=== PATIENT | male | born 1960 | race African-American/Black ===

== ENCOUNTER 2018-09-24 21:31 | Emergency (ER) | payer MEDICARE, OTHER ==
[~2018-09-24] VITALS: Ht 193 cm; Wt 126.4 kg
[~2018-09-24 21:31] MED LIST: ASPI-556 PO; ATOR40TA28 PO; DOCU-119 PO; GABA-531 PO; IPRAHFA IH; LOSA25TA2 PO; METO25TA3 PO; OMEP20 PO; Ranolazine PO; TAMS0.4C32 PO; TICA90TA PO
[2018-09-24] MEDS ORDERED: MIRT15 PO (21:52)
[2018-09-24] MEDS ORDERED: NITR0.4T52 SL (21:52)
[2018-09-24] MEDS ORDERED: DULO20CA30 PO (21:52)
[2018-09-24] MEDS ORDERED: TRAM50TA4 PO (21:52)
[2018-09-24] MEDS ORDERED: ROSU20TA23 PO (21:52)
[2018-09-24] MEDS ORDERED: NIFE90TA38 PO (21:52)
[2018-09-24] MEDS ORDERED: METO-558 PO (21:52)
[2018-09-24] MEDS ORDERED: ISOS60TA4 PO (21:52)
[2018-09-24] MEDS ORDERED: LORA10TA7 PO (21:52)
[2018-09-24] MEDS ORDERED: ALIR75PE SQ (21:52)
[2018-09-24] MEDS ORDERED: MONT10TA21 PO (21:52)
[2018-09-24] MEDS ORDERED: RANI150T7 PO (21:52)
[2018-09-24] MEDS ORDERED: VENL-193 PO (21:52)
[2018-09-24] MEDS ORDERED: DiphenhydrAMINE HCL 25 MG CAPSULE PO ONE (22:45)
[2018-09-24 22:58] VITALS: BP 99/45
== END 2018-09-24 23:06 | disposition home or self-care (01) ==
LOC: EMS 21:33
DX: T78.49XA Other allergy, initial encounter (principal); I10 Essential (primary) hypertension; E78.00 Pure hypercholesterolemia, unspecified; I25.10 Atherosclerotic heart disease of native coronary artery without angina pectoris; Z88.5 Allergy status to narcotic agent; Z88.6 Allergy status to analgesic agent; Z79.82 Long term (current) use of aspirin; Z79.899 Other long term (current) drug therapy; X58.XXXA Exposure to other specified factors, initial encounter

== ENCOUNTER 2018-09-27 23:00 | Inpatient (IN) | payer MEDICARE, OTHER ==
[~2018-09-27] VITALS: Ht 193 cm; Wt 129.4 kg
[~2018-09-27 23:00] MED LIST changes: +ALIR75PE SQ; -ATOR40TA28 PO; -DOCU-119 PO; +DULO20CA30 PO; -GABA-531 PO; -IPRAHFA IH; +ISOS60TA4 PO; +LORA10TA7 PO; +METO-558 PO; -METO25TA3 PO; +MIRT15 PO; +MONT10TA21 PO; +NIFE90TA38 PO; +NITR0.4T52 SL; +RANI150T7 PO; +ROSU20TA23 PO; +TRAM50TA4 PO; +VENL-193 PO
[2018-09-27 23:31] LABS: BASOPHILS % (AUTO) 0.9 % (0.0-2.0); EOSINOPHILS % (AUTO) 1.3 % (1.0-6.0); HEMATOCRIT 38.6 % (41-53); HEMOGLOBIN 12.7 g/dL (13.5-17.5); LYMPHOCYTES # (AUTO) 2.2 K/uL (1.0-4.8); MEAN CORPUSCULAR HEMOGLOBIN 31.2 pg (26.0-34.0); MEAN CORPUSCULAR HGB CONC 32.9 G/dL (31.0-37.0); MEAN CORPUSCULAR VOLUME 95 fL (80-100); MONOCYTES # (AUTO) 0.4 K/uL (0.1-1.0); MONOCYTES % (AUTO) 9.1 % (2.0-9.0); NEUTROPHILS # (AUTO) 1.8 K/uL (1.8-7.7); NEUTROPHILS % (AUTO) 39.7 % (40.0-70.0); PLATELET COUNT (AUTO) 222 K/uL (150-450); RED BLOOD CELL COUNT(AUTO) 4.07 MIL/uL (4.50-5.90); RED CELL DISTRIBUTION WIDTH 15.4 % (11.5-14.5)
[2018-09-27] MEDS ORDERED: MORPHINE SULFATE 10 MG/ML SYRINGE IVP ONE (23:45)
[2018-09-27] MEDS ORDERED: ONDANSETRON HCL 4 MG/2 ML VIAL IVP ONE (23:45)
[2018-09-27] MEDS ORDERED: MORPHINE SULFATE 2 MG/ML SYRINGE IVP ONE (23:45)
[2018-09-27 23:54] LABS: B-TYPE NATRIURETIC PEPTIDE 23 pg/mL (0-100)
[2018-09-28] MEDS ORDERED: ONDANSETRON HCL 4 MG/2 ML VIAL IVP PRN
[2018-09-28] MEDS ORDERED: 0.9% SODIUM CHLORIDE 10 ML SYRINGE IVP PRN
[2018-09-28 00:06] LABS: ALANINE AMINOTRANSFERASE 20 U/L (12-78); ALBUMIN 3.7 g/dL (3.4-5.0); ALKALINE PHOSPHATASE 79 U/L (46-116); ANION GAP 11 mmol/L (8-16); ASPARTATE AMINOTRANSFERASE 15 U/L (15-37); BILIRUBIN,TOTAL 0.2 mg/dL (0.1-1.0); CALCIUM, TOTAL 9.2 mg/dL (8.8-10.5); CARBON DIOXIDE 24 mmol/L (22-29); CHLORIDE 105 mmol/L (98-107); CREATININE 1.24 mg/dL (0.60-1.30); GLOMERULAR FILTR. RATE CALC > 60 mL/min (>60); GLUCOSE,RANDOM 111 mg/dL (70-110); LIPASE 181 U/L (73-393); POTASSIUM 3.9 mmol/L (3.5-5.1); SODIUM SERUM 140 mmol/L (136-145); TOTAL PROTEIN, SERUM 7.5 g/dL (6.4-8.2); UREA NITROGEN, BLOOD 15 mg/dL (7-18)
[2018-09-28] MEDS ORDERED: NITROGLYCERIN 2% (1 GM=INCH) PACKET TP ONE (00:30)
[2018-09-28] MEDS ORDERED: MORPHINE SULFATE 2 MG/ML SYRINGE IVP ONE (00:30)
[2018-09-28 01:55] VITALS: BP 138/79
[2018-09-28] MEDS ORDERED: NITROGLYCERIN 0.4 MG SUBLINGUAL TABLET #25 SL PRN (02:45)
[2018-09-28] MEDS ORDERED: TraMADol HCL 50 MG TABLET PO PRN (02:45)
[2018-09-28] MEDS ORDERED: MAGNESIUM HYDROXIDE SUSPENSION 30 ML UDCUP PO PRN (03:00)
[2018-09-28] MEDS ORDERED: IPRATROPIUM BROMIDE 0.5 MG/2.5 ML NEB SOLUTION NEB PRN (03:00)
[2018-09-28] MEDS ORDERED: BISACODYL 10 MG RECTAL RECTAL SUPPOSITORY PR PRN (03:00)
[2018-09-28] MEDS ORDERED: ALBUTEROL SULFATE 2.5 MG/0.5 ML NEB SOLUTION NEB PRN (03:00)
[2018-09-28 05:55] VITALS: BP 113/61
[2018-09-28 06:05] LABS: BASOPHILS % (AUTO) 0.6 % (0.0-2.0); EOSINOPHILS % (AUTO) 1.8 % (1.0-6.0); HEMATOCRIT 36.5 % (41-53); LYMPHOCYTES # (AUTO) 2.2 K/uL (1.0-4.8); MEAN CORPUSCULAR HEMOGLOBIN 31.4 pg (26.0-34.0); MEAN CORPUSCULAR VOLUME 95 fL (80-100); MONOCYTES # (AUTO) 0.5 K/uL (0.1-1.0); MONOCYTES % (AUTO) 11.2 % (2.0-9.0); NEUTROPHILS # (AUTO) 1.4 K/uL (1.8-7.7); NEUTROPHILS % (AUTO) 34.4 % (40.0-70.0); PLATELET COUNT (AUTO) 212 K/uL (150-450); RED BLOOD CELL COUNT(AUTO) 3.83 MIL/uL (4.50-5.90); RED CELL DISTRIBUTION WIDTH 15.2 % (11.5-14.5)
[2018-09-28 06:13] LABS: ALANINE AMINOTRANSFERASE 24 U/L (12-78); ALBUMIN 3.5 g/dL (3.4-5.0); ALKALINE PHOSPHATASE 72 U/L (46-116); ANION GAP 4 mmol/L (8-16); ASPARTATE AMINOTRANSFERASE 15 U/L (15-37); BILIRUBIN,TOTAL 0.2 mg/dL (0.1-1.0); CALCIUM, TOTAL 8.9 mg/dL (8.8-10.5); CARBON DIOXIDE 29 mmol/L (22-29); CHLORIDE 106 mmol/L (98-107); CHOL/HDL RATIO 1.6 (4.2-7.3); CHOLESTEROL 58 mg/dL (131-200); CREATININE 1.22 mg/dL (0.60-1.30); GLOMERULAR FILTR. RATE CALC > 60 mL/min (>60); GLUCOSE,RANDOM 100 mg/dL (70-110); HDL CHOLESTEROL 37 mg/dL (40-60); LDL CHOL (CALC.) 11 mg/dL (0-130); POTASSIUM 4.4 mmol/L (3.5-5.1); SODIUM SERUM 139 mmol/L (136-145); TOTAL PROTEIN, SERUM 7.1 g/dL (6.4-8.2); TRIGLYCERIDES 48 mg/dL (15-150); UREA NITROGEN, BLOOD 13 mg/dL (7-18)
[2018-09-28 07:24] VITALS: BP 116/69
[2018-09-28] MEDS: HEPARIN SODIUM,PORCINE 5,000 UNITS/ML VIAL SQ SCH ×2 (08:43→20:56)
[2018-09-28] MEDS: ROSUVASTATIN CALCIUM 20 MG TABLET PO SCH (08:46)
[2018-09-28] MEDS: TAMSULOSIN HCL 0.4 MG CAPSULE PO SCH (08:46)
[2018-09-28] MEDS: OMEPRAZOLE 20 MG CAPSULE PO SCH (08:47)
[2018-09-28] MEDS: MONTELUKAST SODIUM 10 MG TABLET PO SCH (08:47)
[2018-09-28] MEDS: DULoxetine HCL 20 MG CAPSULE PO SCH (08:47)
[2018-09-28] MEDS: RANOLAZINE 500 MG ER TABLET PO SCH ×2 (08:48→20:56)
[2018-09-28] MEDS: DOCUSATE SODIUM 100 MG CAPSULE PO SCH ×2 (08:48→20:56)
[2018-09-28] MEDS: TICAGRELOR 90 MG TABLET PO SCH ×2 (08:48→20:56)
[2018-09-28] MEDS: VENLAFAXINE HCL 37.5 MG TABLET PO SCH (08:48)
[2018-09-28] MEDS: ASPIRIN 81 MG EC TABLET PO SCH (08:48)
[2018-09-28] MEDS: ISOSORBIDE MONONITRATE 60 MG ER TABLET PO SCH (08:48)
[2018-09-28] MEDS: NIFEdipine 90 MG ER TABLET PO SCH (08:48)
[2018-09-28] MEDS: LORATADINE 10 MG TABLET PO SCH (08:49)
[2018-09-28] MEDS: LOSARTAN POTASSIUM 25 MG TABLET PO SCH (08:49)
[2018-09-28] MEDS ORDERED: METOPROLOL SUCCINATE 50 MG ER TABLET PO SCH (09:00)
[2018-09-28 10:49] VITALS: BP 115/76
[2018-09-28] MEDS ORDERED: RANO500T3 PO (11:57)
[2018-09-28] MEDS: ONDANSETRON HCL 4 MG/2 ML VIAL IVP PRN ×2 (12:21→18:13)
[2018-09-28] MEDS: MORPHINE SULFATE 2 MG/ML SYRINGE IVP PRN ×2 (12:21→18:13)
[2018-09-28] MEDS ORDERED: METOPROLOL TARTRATE 50 MG TABLET PO SCH ×2 (15:00→21:00)
[2018-09-28 15:59] VITALS: BP 103/60
[2018-09-28 19:25] VITALS: BP 97/50
[2018-09-28] MEDS: MIRTAZAPINE 15 MG TABLET PO SCH (20:56)
[2018-09-28] MEDS: METOPROLOL TARTRATE 50 MG TABLET PO SCH (21:00)
[2018-09-29] VITALS (7 sets, daily range): BP systolic 106–128; BP diastolic 61–85
[2018-09-29] MEDS: LORATADINE 10 MG TABLET PO SCH (08:56)
[2018-09-29] MEDS: ROSUVASTATIN CALCIUM 20 MG TABLET PO SCH (08:56)
[2018-09-29] MEDS: RANOLAZINE 500 MG ER TABLET PO SCH ×2 (08:56→20:21)
[2018-09-29] MEDS: TAMSULOSIN HCL 0.4 MG CAPSULE PO SCH (08:56)
[2018-09-29] MEDS: DOCUSATE SODIUM 100 MG CAPSULE PO SCH ×2 (08:56→20:22)
[2018-09-29] MEDS: VENLAFAXINE HCL 37.5 MG TABLET PO SCH (08:56)
[2018-09-29] MEDS: OMEPRAZOLE 20 MG CAPSULE PO SCH (08:56)
[2018-09-29] MEDS: TICAGRELOR 90 MG TABLET PO SCH ×2 (08:57→20:21)
[2018-09-29] MEDS: METOPROLOL TARTRATE 50 MG TABLET PO SCH ×2 (08:57→20:21)
[2018-09-29] MEDS: MONTELUKAST SODIUM 10 MG TABLET PO SCH (08:57)
[2018-09-29] MEDS: ASPIRIN 81 MG EC TABLET PO SCH (08:57)
[2018-09-29] MEDS: HEPARIN SODIUM,PORCINE 5,000 UNITS/ML VIAL SQ SCH ×2 (08:58→20:21)
[2018-09-29] MEDS: DULoxetine HCL 20 MG CAPSULE PO SCH (08:59)
[2018-09-29] MEDS: NIFEdipine 90 MG ER TABLET PO SCH (12:18)
[2018-09-29] MEDS: ISOSORBIDE MONONITRATE 60 MG ER TABLET PO SCH (12:18)
[2018-09-29] MEDS: MORPHINE SULFATE 2 MG/ML SYRINGE IVP PRN ×2 (12:19→20:25)
[2018-09-29] MEDS: LOSARTAN POTASSIUM 25 MG TABLET PO SCH (12:21)
[2018-09-29] MEDS: ONDANSETRON HCL 4 MG/2 ML VIAL IVP PRN ×2 (12:26→21:17)
[2018-09-29] MEDS: MIRTAZAPINE 15 MG TABLET PO SCH (20:22)
[2018-09-30 04:00] VITALS: BP 112/64
[2018-09-30] MEDS: ONDANSETRON HCL 4 MG/2 ML VIAL IVP PRN ×3 (05:17→17:45)
[2018-09-30] MEDS: MORPHINE SULFATE 2 MG/ML SYRINGE IVP PRN ×3 (05:18→17:45)
[2018-09-30 08:01] VITALS: BP 114/63
[2018-09-30] MEDS: LORATADINE 10 MG TABLET PO SCH (08:43)
[2018-09-30] MEDS: DOCUSATE SODIUM 100 MG CAPSULE PO SCH ×2 (08:43→20:16)
[2018-09-30] MEDS: TICAGRELOR 90 MG TABLET PO SCH ×2 (08:43→20:16)
[2018-09-30] MEDS: DULoxetine HCL 20 MG CAPSULE PO SCH (08:44)
[2018-09-30] MEDS: ASPIRIN 81 MG EC TABLET PO SCH (08:44)
[2018-09-30] MEDS: ROSUVASTATIN CALCIUM 20 MG TABLET PO SCH (08:44)
[2018-09-30] MEDS: TAMSULOSIN HCL 0.4 MG CAPSULE PO SCH (08:45)
[2018-09-30] MEDS: VENLAFAXINE HCL 37.5 MG TABLET PO SCH (08:45)
[2018-09-30] MEDS: MONTELUKAST SODIUM 10 MG TABLET PO SCH (08:46)
[2018-09-30] MEDS: RANOLAZINE 500 MG ER TABLET PO SCH ×2 (08:46→20:15)
[2018-09-30] MEDS: OMEPRAZOLE 20 MG CAPSULE PO SCH (08:46)
[2018-09-30] MEDS: HEPARIN SODIUM,PORCINE 5,000 UNITS/ML VIAL SQ SCH ×2 (08:47→20:16)
[2018-09-30] MEDS: LOSARTAN POTASSIUM 25 MG TABLET PO SCH (09:00)
[2018-09-30] MEDS: NIFEdipine 90 MG ER TABLET PO SCH (09:00)
[2018-09-30] MEDS: METOPROLOL TARTRATE 50 MG TABLET PO SCH ×2 (09:00→20:16)
[2018-09-30] MEDS: ISOSORBIDE MONONITRATE 60 MG ER TABLET PO SCH (09:00)
[2018-09-30 11:33] VITALS: BP 114/63
[2018-09-30 16:04] VITALS: BP 120/60
[2018-09-30 20:07] VITALS: BP 128/78
[2018-09-30] MEDS: MIRTAZAPINE 15 MG TABLET PO SCH (20:16)
[2018-10-01 00:11] VITALS: BP 100/45
[2018-10-01 00:58] VITALS: BP 131/78
[2018-10-01 04:12] VITALS: BP 113/71
[2018-10-01] MEDS: MORPHINE SULFATE 2 MG/ML SYRINGE IVP PRN ×2 (05:33→11:43)
[2018-10-01] MEDS: ONDANSETRON HCL 4 MG/2 ML VIAL IVP PRN ×2 (05:33→11:43)
[2018-10-01 05:41] LABS: ANION GAP 1 mmol/L (8-16); CALCIUM, TOTAL 9.5 mg/dL (8.8-10.5); CARBON DIOXIDE 31 mmol/L (22-29); CHLORIDE 106 mmol/L (98-107); CREATININE 1.38 mg/dL (0.60-1.30); GLOMERULAR FILTR. RATE CALC > 60 mL/min (>60); GLUCOSE,RANDOM 122 mg/dL (70-110); POTASSIUM 4.4 mmol/L (3.5-5.1); SODIUM SERUM 138 mmol/L (136-145); UREA NITROGEN, BLOOD 11 mg/dL (7-18)
[2018-10-01 07:54] VITALS: BP 121/88
[2018-10-01] MEDS: LOSARTAN POTASSIUM 25 MG TABLET PO SCH (08:32)
[2018-10-01] MEDS: ISOSORBIDE MONONITRATE 60 MG ER TABLET PO SCH (09:00)
[2018-10-01] MEDS: NIFEdipine 90 MG ER TABLET PO SCH (09:00)
[2018-10-01] MEDS: HEPARIN SODIUM,PORCINE 5,000 UNITS/ML VIAL SQ SCH (09:00)
[2018-10-01] MEDS: METOPROLOL TARTRATE 50 MG TABLET PO SCH (09:50)
[2018-10-01] MEDS ORDERED: METOPROLOL TARTRATE 5 MG/5 ML VIAL ONE (10:27)
[2018-10-01] MEDS ORDERED: NITROGLYCERIN 400 MCG/SUBLINGUAL SPRAY 4.9 GM BOTTLE SL ONE (10:27)
[2018-10-01] MEDS: TICAGRELOR 90 MG TABLET PO SCH (11:25)
[2018-10-01] MEDS: LORATADINE 10 MG TABLET PO SCH (11:26)
[2018-10-01] MEDS: ROSUVASTATIN CALCIUM 20 MG TABLET PO SCH (11:26)
[2018-10-01] MEDS: DOCUSATE SODIUM 100 MG CAPSULE PO SCH (11:26)
[2018-10-01] MEDS: DULoxetine HCL 20 MG CAPSULE PO SCH (11:27)
[2018-10-01] MEDS: TAMSULOSIN HCL 0.4 MG CAPSULE PO SCH (11:28)
[2018-10-01] MEDS: ASPIRIN 81 MG EC TABLET PO SCH (11:28)
[2018-10-01] MEDS: OMEPRAZOLE 20 MG CAPSULE PO SCH (11:28)
[2018-10-01] MEDS: VENLAFAXINE HCL 37.5 MG TABLET PO SCH (11:28)
[2018-10-01] MEDS: RANOLAZINE 500 MG ER TABLET PO SCH (11:29)
[2018-10-01] MEDS: MONTELUKAST SODIUM 10 MG TABLET PO SCH (11:29)
[2018-10-01 11:40] VITALS: BP 123/96
[2018-10-01] MEDS ORDERED: TraMADol HCL 50 MG TABLET PO PRN (14:45)
== END 2018-10-01 15:34 | disposition home or self-care (01) | DRG 303 ==
LOC: EMS 23:04 → 5S 23:52
PROVIDERS: ADMIT Internal Medicine; ATTEND Internal Medicine
PROC: 5A09357 Assistance with Respiratory Ventilation, Less than 24 Consecutive Hours, Continuous Positive Airway Pressure (ICD-10-PCS; principal; 2018-09-28)
PROC: 5A09357 Assistance with Respiratory Ventilation, Less than 24 Consecutive Hours, Continuous Positive Airway Pressure (ICD-10-PCS; 2018-09-29)
PROC: 5A09357 Assistance with Respiratory Ventilation, Less than 24 Consecutive Hours, Continuous Positive Airway Pressure (ICD-10-PCS; 2018-09-30)
PROC: 5A09357 Assistance with Respiratory Ventilation, Less than 24 Consecutive Hours, Continuous Positive Airway Pressure (ICD-10-PCS; 2018-10-01)
DX: I25.110 Atherosclerotic heart disease of native coronary artery with unstable angina pectoris (principal); I10 Essential (primary) hypertension; E78.5 Hyperlipidemia, unspecified; J45.909 Unspecified asthma, uncomplicated; F32.9 Major depressive disorder, single episode, unspecified; K21.9 Gastro-esophageal reflux disease without esophagitis; N40.0 Benign prostatic hyperplasia without lower urinary tract symptoms; E66.9 Obesity, unspecified; E78.00 Pure hypercholesterolemia, unspecified; M19.90 Unspecified osteoarthritis, unspecified site; G47.33 Obstructive sleep apnea (adult) (pediatric); G89.29 Other chronic pain; Z95.5 Presence of coronary angioplasty implant and graft; Z95.0 Presence of cardiac pacemaker; Z88.8 Allergy status to other drugs, medicaments and biological substances; Z79.899 Other long term (current) drug therapy; Z68.34 Body mass index [BMI] 34.0-34.9, adult
CPT/HCPCS: 93005; 93306; 94660; G0378; G0480; J1644; J2270; J2405; J3490

== ENCOUNTER 2018-10-09 19:24 | Emergency (ER) | payer MEDICARE, OTHER ==
[~2018-10-09] VITALS: Ht 193 cm; Wt 125.0 kg
[~2018-10-09 19:24] MED LIST changes: -ALIR75PE SQ; -ISOS60TA4 PO; -LORA10TA7 PO; -METO-558 PO; -MIRT15 PO; -MONT10TA21 PO; -NIFE90TA38 PO; -RANI150T7 PO; +RANO500T3 PO; -Ranolazine PO; -TRAM50TA4 PO; -VENL-193 PO
[2018-10-09 20:12] LABS: BASOPHILS % (AUTO) 0.4 % (0.0-2.0); EOSINOPHILS % (AUTO) 0.5 % (1.0-6.0); HEMATOCRIT 39.3 % (41-53); LYMPHOCYTES % (AUTO) 40.1 % (22.0-44.0); MEAN CORPUSCULAR HEMOGLOBIN 31.3 pg (26.0-34.0); MEAN CORPUSCULAR HGB CONC 33.1 G/dL (31.0-37.0); MEAN CORPUSCULAR VOLUME 95 fL (80-100); MONOCYTES # (AUTO) 0.5 K/uL (0.1-1.0); MONOCYTES % (AUTO) 8.9 % (2.0-9.0); NEUTROPHILS # (AUTO) 2.6 K/uL (1.8-7.7); NEUTROPHILS % (AUTO) 50.1 % (40.0-70.0); PLATELET COUNT (AUTO) 205 K/uL (150-450); RED BLOOD CELL COUNT(AUTO) 4.15 MIL/uL (4.50-5.90); RED CELL DISTRIBUTION WIDTH 15.4 % (11.5-14.5)
[2018-10-09 20:21] LABS: ANION GAP 4 mmol/L (8-16); CALCIUM, TOTAL 9.7 mg/dL (8.8-10.5); CARBON DIOXIDE 32 mmol/L (22-29); CHLORIDE 106 mmol/L (98-107); CREATININE 1.31 mg/dL (0.60-1.30); GLOMERULAR FILTR. RATE CALC > 60 mL/min (>60); GLUCOSE,RANDOM 90 mg/dL (70-110); POTASSIUM 4.4 mmol/L (3.5-5.1); SODIUM SERUM 142 mmol/L (136-145); UREA NITROGEN, BLOOD 15 mg/dL (7-18)
[2018-10-09 20:25] LABS: PROTHROMBIN TIME 10.5 SEC (9.4-11.6)
[2018-10-09 20:29] LABS: B-TYPE NATRIURETIC PEPTIDE 34 pg/mL (0-100)
[2018-10-09 20:47] LABS: ALANINE AMINOTRANSFERASE 33 U/L (12-78); ALBUMIN 3.7 g/dL (3.4-5.0); ALKALINE PHOSPHATASE 75 U/L (46-116); ASPARTATE AMINOTRANSFERASE 21 U/L (15-37); BILIRUBIN,TOTAL 0.3 mg/dL (0.1-1.0); CREATINE KINASE, TOTAL ONLY 469 U/L (39-308); TOTAL PROTEIN, SERUM 7.7 g/dL (6.4-8.2)
[2018-10-09] MEDS ORDERED: MORPHINE SULFATE 2 MG/ML SYRINGE IVP ONE (22:45)
[2018-10-09] MEDS ORDERED: ONDANSETRON HCL 4 MG/2 ML VIAL IVP ONE (22:45)
[2018-10-09 23:19] LABS: APPEARANCE,URINE CLEAR (CLEAR); GLUCOSE, URINE (UA) NEGATIVE (NEGATIVE); KETONES,URINE TRACE mg/dL (NEGATIVE); LEUKOCYTE ESTERASE ,URINE SMALL (NEGATIVE); NITRATE,URINE NEGATIVE (NEGATIVE); OCCULT BLOOD,URINE NEGATIVE (NEGATIVE); PROTEIN,URINE TRACE (NEGATIVE)
[2018-10-09 23:25] LABS: BILIRUBIN,URINE PRELIM. POSITIVE (NEGATIVE)
[2018-10-09 23:30] LABS: AMPHET/METH SCREEN,URINE NEGATIVE (NEGATIVE); BARBITURATE SCREEN, URINE NEGATIVE (NEGATIVE); BENZODIAZEPINES SCREEN,URINE NEGATIVE (NEGATIVE); CANNABINOID SCREEN,URINE NEGATIVE (NEGATIVE); COCAINE SCREEN,URINE NEGATIVE (NEGATIVE); METHADONE SCREEN, URINE NEGATIVE (NEGATIVE)
[2018-10-09 23:31] LABS: OPIATE SCREEN,URINE NEGATIVE (NEGATIVE); PHENCYCLIDINE SCREEN,URINE NEGATIVE (NEGATIVE)
[2018-10-09 23:35] LABS: BACTERIA,URINE None Seen /HPF (None Seen); RBC,URINE 0-2 /HPF (0-2); SQUAMOUS EPITHELIAL CELL,UR Moderate /LPF (None Seen)
[2018-10-10] MEDS ORDERED: MORPHINE SULFATE 2 MG/ML SYRINGE IVP ONE (00:45)
[2018-10-10 01:00] VITALS: BP 124/68
== END 2018-10-10 01:10 | disposition home or self-care (01) ==
LOC: EMS 19:27
DX: R07.9 Chest pain, unspecified (principal); I25.10 Atherosclerotic heart disease of native coronary artery without angina pectoris; I11.9 Hypertensive heart disease without heart failure; E78.00 Pure hypercholesterolemia, unspecified; Z88.5 Allergy status to narcotic agent; Z88.6 Allergy status to analgesic agent; Z79.82 Long term (current) use of aspirin; Z79.899 Other long term (current) drug therapy
CPT/HCPCS: 36415; 71045; 80053; 80307; 81001; 82550; 83880; 84484; 85025; 85610; 85730; 87086; 93005; 96374; 96375; 96376; 99284; J2270 ×2; J2405

== ENCOUNTER 2018-11-08 12:06 | Emergency (ER) | payer MEDICARE, OTHER ==
[~2018-11-08] VITALS: Ht 193 cm; Wt 125.9 kg
[2018-11-08] MEDS ORDERED: BARIUM SULFATE 0.1% SUSPENSION 450 ML BOTTLE PO ONE (12:45)
[2018-11-08] MEDS ORDERED: IOVERSOL 350 MG/ML 150 ML VIAL ONE (12:53)
[2018-11-08] MEDS ORDERED: SODIUM CHLORIDE 0.9% 100 ML ONE (12:53)
[2018-11-08] MEDS ORDERED: ONDANSETRON HCL 4 MG/2 ML VIAL IVP ONE (13:15)
[2018-11-08] MEDS ORDERED: MORPHINE SULFATE 4 MG/ML SYRINGE IVP ONE (13:15)
[2018-11-08 13:16] LABS: BASOPHILS % (AUTO) 0.5 % (0.0-2.0); EOSINOPHILS % (AUTO) 1.7 % (1.0-6.0); HEMATOCRIT 37.8 % (41-53); HEMOGLOBIN 12.7 g/dL (13.5-17.5); LYMPHOCYTES # (AUTO) 1.6 K/uL (1.0-4.8); LYMPHOCYTES % (AUTO) 40.8 % (22.0-44.0); MEAN CORPUSCULAR HEMOGLOBIN 31.6 pg (26.0-34.0); MEAN CORPUSCULAR HGB CONC 33.6 G/dL (31.0-37.0); MEAN CORPUSCULAR VOLUME 94 fL (80-100); MONOCYTES # (AUTO) 0.4 K/uL (0.1-1.0); MONOCYTES % (AUTO) 9.3 % (2.0-9.0); NEUTROPHILS # (AUTO) 1.8 K/uL (1.8-7.7); NEUTROPHILS % (AUTO) 47.7 % (40.0-70.0); PLATELET COUNT (AUTO) 262 K/uL (150-450); RED BLOOD CELL COUNT(AUTO) 4.02 MIL/uL (4.50-5.90); RED CELL DISTRIBUTION WIDTH 14.8 % (11.5-14.5)
[2018-11-08 13:28] LABS: ANION GAP 8 mmol/L (8-16); CALCIUM, TOTAL 9.5 mg/dL (8.8-10.5); CARBON DIOXIDE 26 mmol/L (22-29); CHLORIDE 104 mmol/L (98-107); CREATININE 1.39 mg/dL (0.60-1.30); GLOMERULAR FILTR. RATE CALC > 60 mL/min (>60); GLUCOSE,RANDOM 95 mg/dL (70-110); SODIUM SERUM 138 mmol/L (136-145); UREA NITROGEN, BLOOD 13 mg/dL (7-18)
[2018-11-08 13:34] LABS: LACTIC ACID 0.9 mmol/L (0.4-2.0)
[2018-11-08 13:41] LABS: ALANINE AMINOTRANSFERASE 35 U/L (12-78); ALBUMIN 3.9 g/dL (3.4-5.0); ALKALINE PHOSPHATASE 95 U/L (46-116); ASPARTATE AMINOTRANSFERASE 25 U/L (15-37); BILIRUBIN,TOTAL 0.4 mg/dL (0.1-1.0); TOTAL PROTEIN, SERUM 7.6 g/dL (6.4-8.2)
[2018-11-08 15:40] VITALS: BP 121/77
== END 2018-11-08 15:47 | disposition home or self-care (01) ==
LOC: EMS 12:06
DX: G89.18 Other acute postprocedural pain (principal); R07.9 Chest pain, unspecified; I10 Essential (primary) hypertension; E78.00 Pure hypercholesterolemia, unspecified; I25.10 Atherosclerotic heart disease of native coronary artery without angina pectoris; Z88.5 Allergy status to narcotic agent; Z88.6 Allergy status to analgesic agent; Z88.8 Allergy status to other drugs, medicaments and biological substances; Z79.899 Other long term (current) drug therapy
CPT/HCPCS: 36415; 71045; 71275; 74177; 80053; 83605; 84484; 85025; 93005; 96374; 96375; 99285; J2270; J2405; J7050; Q9967

== ENCOUNTER 2018-12-02 21:21 | Emergency (ER) | payer MEDICARE, OTHER ==
[~2018-12-02] VITALS: Ht 193 cm; Wt 121.4 kg
[2018-12-02] MEDS ORDERED: PROM25 PO (21:39)
[2018-12-02 21:53] LABS: BASOPHILS % (AUTO) 0.5 % (0.0-2.0); EOSINOPHILS % (AUTO) 1.8 % (1.0-6.0); HEMATOCRIT 37.9 % (41-53); HEMOGLOBIN 12.7 g/dL (13.5-17.5); LYMPHOCYTES # (AUTO) 1.8 K/uL (1.0-4.8); LYMPHOCYTES % (AUTO) 42.5 % (22.0-44.0); MEAN CORPUSCULAR HEMOGLOBIN 31.3 pg (26.0-34.0); MEAN CORPUSCULAR HGB CONC 33.4 G/dL (31.0-37.0); MEAN CORPUSCULAR VOLUME 94 fL (80-100); MONOCYTES # (AUTO) 0.5 K/uL (0.1-1.0); NEUTROPHILS # (AUTO) 1.9 K/uL (1.8-7.7); NEUTROPHILS % (AUTO) 44.2 % (40.0-70.0); PLATELET COUNT (AUTO) 202 K/uL (150-450); RED BLOOD CELL COUNT(AUTO) 4.05 MIL/uL (4.50-5.90)
[2018-12-02 22:11] LABS: ANION GAP 8 mmol/L (8-16); CALCIUM, TOTAL 9.5 mg/dL (8.8-10.5); CARBON DIOXIDE 28 mmol/L (22-29); CHLORIDE 106 mmol/L (98-107); CREATININE 1.42 mg/dL (0.60-1.30); GLOMERULAR FILTR. RATE CALC > 60 mL/min (>60); GLUCOSE,RANDOM 126 mg/dL (70-110); POTASSIUM 3.8 mmol/L (3.5-5.1); SODIUM SERUM 142 mmol/L (136-145); UREA NITROGEN, BLOOD 12 mg/dL (7-18)
[2018-12-02 22:14] LABS: ALANINE AMINOTRANSFERASE 28 U/L (12-78); ALBUMIN 4.1 g/dL (3.4-5.0); ALKALINE PHOSPHATASE 92 U/L (46-116); ASPARTATE AMINOTRANSFERASE 18 U/L (15-37); BILIRUBIN,TOTAL 0.3 mg/dL (0.1-1.0); TOTAL PROTEIN, SERUM 7.5 g/dL (6.4-8.2)
[2018-12-02] MEDS ORDERED: HYDROmorphone 2 MG/ML SYRINGE IM ONE (22:30)
[2018-12-02] MEDS ORDERED: ONDANSETRON HCL 4 MG/2 ML VIAL PO ONE (22:30)
[2018-12-02] MEDS ORDERED: ONDANSETRON HCL 4 MG/2 ML VIAL IM ONE (23:00)
[2018-12-02 23:01] VITALS: BP 138/74
== END 2018-12-02 23:07 | disposition home or self-care (01) ==
LOC: EMS 21:22
DX: E78.00 Pure hypercholesterolemia, unspecified (principal); I10 Essential (primary) hypertension; I25.10 Atherosclerotic heart disease of native coronary artery without angina pectoris; G47.30 Sleep apnea, unspecified; G89.29 Other chronic pain; Z95.1 Presence of aortocoronary bypass graft; Z79.899 Other long term (current) drug therapy; Z88.5 Allergy status to narcotic agent; Z88.6 Allergy status to analgesic agent; Z88.8 Allergy status to other drugs, medicaments and biological substances
CPT/HCPCS: 36415; 71045; 80053; 84484; 85025; 93005; 96372; 99284; J1170; J2405

== ENCOUNTER 2019-01-31 18:23 | Inpatient (IN) | payer MEDICARE, OTHER ==
[~2019-01-31] VITALS: Ht 193 cm; Wt 121.4 kg
[~2019-01-31 18:23] MED LIST changes: +CIP250 PO; +FINA5TAB41 PO; +TAMS-13 PO; -TAMS0.4C32 PO
[2019-01-31] MEDS ORDERED: METO50 PO (18:38)
[2019-01-31 19:10] LABS: BASOPHILS % (AUTO) 0.5 % (0.0-2.0); EOSINOPHILS % (AUTO) 1.5 % (1.0-6.0); HEMOGLOBIN 12.2 g/dL (13.5-17.5); LYMPHOCYTES # (AUTO) 1.5 K/uL (1.0-4.8); LYMPHOCYTES % (AUTO) 44.5 % (22.0-44.0); MEAN CORPUSCULAR HEMOGLOBIN 31.6 pg (26.0-34.0); MEAN CORPUSCULAR HGB CONC 33.9 G/dL (31.0-37.0); MEAN CORPUSCULAR VOLUME 93 fL (80-100); MONOCYTES # (AUTO) 0.4 K/uL (0.1-1.0); MONOCYTES % (AUTO) 10.3 % (2.0-9.0); NEUTROPHILS # (AUTO) 1.5 K/uL (1.8-7.7); NEUTROPHILS % (AUTO) 43.2 % (40.0-70.0); PLATELET COUNT (AUTO) 186 K/uL (150-450); RED BLOOD CELL COUNT(AUTO) 3.86 MIL/uL (4.50-5.90); RED CELL DISTRIBUTION WIDTH 15.4 % (11.5-14.5)
[2019-01-31 19:29] LABS: ANION GAP 9 mmol/L (8-16); CALCIUM, TOTAL 8.9 mg/dL (8.8-10.5); CARBON DIOXIDE 29 mmol/L (22-29); CHLORIDE 105 mmol/L (98-107); GLOMERULAR FILTR. RATE CALC > 60 mL/min (>60); GLUCOSE,RANDOM 92 mg/dL (70-110); POTASSIUM 3.9 mmol/L (3.5-5.1); SODIUM SERUM 143 mmol/L (136-145); UREA NITROGEN, BLOOD 14 mg/dL (7-18)
[2019-01-31 19:34] LABS: ALANINE AMINOTRANSFERASE 20 U/L (12-78); ALBUMIN 3.7 g/dL (3.4-5.0); ALKALINE PHOSPHATASE 64 U/L (46-116); ASPARTATE AMINOTRANSFERASE 12 U/L (15-37); BILIRUBIN,TOTAL 0.2 mg/dL (0.1-1.0); TOTAL PROTEIN, SERUM 7.3 g/dL (6.4-8.2)
[2019-01-31] MEDS ORDERED: MORPHINE SULFATE 10 MG/ML SYRINGE IVP ONE (20:45)
[2019-01-31] MEDS ORDERED: ONDANSETRON HCL 4 MG/2 ML VIAL IVP ONE (20:45)
[2019-01-31] MEDS ORDERED: 0.9% SODIUM CHLORIDE 10 ML SYRINGE IVP PRN (22:00)
[2019-01-31] MEDS ORDERED: ACETAMINOPHEN 325 MG TABLET PO PRN (22:00)
[2019-01-31] MEDS ORDERED: MORPHINE SULFATE 4 MG/ML SYRINGE IVP ONE (23:30)
[2019-02-01] MEDS ORDERED: ACETAMINOPHEN 325 MG TABLET PO PRN
[2019-02-01] MEDS ORDERED: ONDANSETRON HCL 4 MG/2 ML VIAL IVP PRN
[2019-02-01] MEDS ORDERED: ZOLPIDEM TARTRATE 5 MG TABLET PO PRN
[2019-02-01] MEDS ORDERED: 0.9% SODIUM CHLORIDE 10 ML SYRINGE IVP PRN
[2019-02-01] MEDS ORDERED: NITROGLYCERIN 0.4 MG SUBLINGUAL TABLET #25 SL PRN
[2019-02-01] MEDS: TICAGRELOR 90 MG TABLET PO SCH ×2 (00:22→10:25)
[2019-02-01 08:03] LABS: BASOPHILS % (AUTO) 0.4 % (0.0-2.0); EOSINOPHILS % (AUTO) 1.9 % (1.0-6.0); HEMOGLOBIN 11.7 g/dL (13.5-17.5); LYMPHOCYTES # (AUTO) 1.6 K/uL (1.0-4.8); LYMPHOCYTES % (AUTO) 45.4 % (22.0-44.0); MEAN CORPUSCULAR HGB CONC 33.5 G/dL (31.0-37.0); MEAN CORPUSCULAR VOLUME 93 fL (80-100); MONOCYTES # (AUTO) 0.3 K/uL (0.1-1.0); MONOCYTES % (AUTO) 9.6 % (2.0-9.0); NEUTROPHILS # (AUTO) 1.5 K/uL (1.8-7.7); NEUTROPHILS % (AUTO) 42.7 % (40.0-70.0); PLATELET COUNT (AUTO) 174 K/uL (150-450); RED BLOOD CELL COUNT(AUTO) 3.78 MIL/uL (4.50-5.90); RED CELL DISTRIBUTION WIDTH 15.4 % (11.5-14.5)
[2019-02-01 08:25] LABS: ALANINE AMINOTRANSFERASE 23 U/L (12-78); ALBUMIN 3.5 g/dL (3.4-5.0); ALKALINE PHOSPHATASE 61 U/L (46-116); ANION GAP 6 mmol/L (8-16); ASPARTATE AMINOTRANSFERASE 15 U/L (15-37); BILIRUBIN,TOTAL 0.2 mg/dL (0.1-1.0); CALCIUM, TOTAL 8.7 mg/dL (8.8-10.5); CARBON DIOXIDE 30 mmol/L (22-29); CHLORIDE 105 mmol/L (98-107); CREATININE 1.25 mg/dL (0.60-1.30); GLOMERULAR FILTR. RATE CALC > 60 mL/min (>60); GLUCOSE,RANDOM 86 mg/dL (70-110); POTASSIUM 4.4 mmol/L (3.5-5.1); SODIUM SERUM 141 mmol/L (136-145)
[2019-02-01 08:36] LABS: UREA NITROGEN, BLOOD 16 mg/dL (7-18)
[2019-02-01] MEDS ORDERED: ENOXAPARIN SODIUM 40 MG/0.4 ML PF SYRINGE SQ SCH (09:00)
[2019-02-01] MEDS ORDERED: DULoxetine HCL 20 MG CAPSULE PO SCH (09:00)
[2019-02-01] MEDS ORDERED: METOPROLOL TARTRATE 50 MG TABLET PO SCH (09:00)
[2019-02-01] MEDS ORDERED: RANOLAZINE 500 MG ER TABLET PO SCH (09:00)
[2019-02-01] MEDS ORDERED: LOSARTAN POTASSIUM 25 MG TABLET PO SCH (09:00)
[2019-02-01] MEDS ORDERED: DOCUSATE SODIUM 100 MG CAPSULE PO SCH (09:00)
[2019-02-01] MEDS ORDERED: ASPIRIN 81 MG EC TABLET PO SCH (09:00)
[2019-02-01] MEDS ORDERED: FINASTERIDE 5 MG TABLET PO SCH (09:00)
[2019-02-01] MEDS ORDERED: TAMSULOSIN HCL 0.4 MG CAPSULE PO SCH (09:00)
[2019-02-01] MEDS ORDERED: PANTOPRAZOLE SODIUM 40 MG DR TABLET PO SCH (09:00)
[2019-02-01] MEDS ORDERED: ROSUVASTATIN CALCIUM 20 MG TABLET PO SCH (09:00)
[2019-02-01 09:21] VITALS: BP 103/71
[2019-02-01 12:08] VITALS: BP 108/64
[2019-02-01 15:22] VITALS: BP 108/66
== END 2019-02-01 17:00 | disposition home or self-care (01) | DRG 303 ==
LOC: EMS 18:24 → 5S 02-01 08:30
PROVIDERS: ADMIT Internal Medicine; ATTEND Internal Medicine
DX: I25.10 Atherosclerotic heart disease of native coronary artery without angina pectoris (principal); E66.9 Obesity, unspecified; E78.00 Pure hypercholesterolemia, unspecified; G47.33 Obstructive sleep apnea (adult) (pediatric); G89.29 Other chronic pain; I10 Essential (primary) hypertension; N40.0 Benign prostatic hyperplasia without lower urinary tract symptoms; Z95.5 Presence of coronary angioplasty implant and graft; Z79.899 Other long term (current) drug therapy; Z68.32 Body mass index [BMI] 32.0-32.9, adult
CPT/HCPCS: 83735; 93005; 93306; 96374; 96375; 96376; J1650; J2270; J2405

== ENCOUNTER 2019-03-14 20:58 | Emergency (ER) | payer MEDICARE, OTHER ==
[~2019-03-14] VITALS: Ht 193 cm; Wt 120.9 kg
[~2019-03-14 20:58] MED LIST changes: +AMLO5TAB9 PO; -CIP250 PO; +METO50 PO; +NYST15CR2 TP
[2019-03-14] MEDS ORDERED: SODIUM CHLORIDE 0.9% 500 ML IV ONE (22:15)
[2019-03-14 22:20] LABS: EOSINOPHILS % (AUTO) 0.9 % (1.0-6.0); HEMATOCRIT 33.6 % (41-53); HEMOGLOBIN 11.4 g/dL (13.5-17.5); LYMPHOCYTES # (AUTO) 1.3 K/uL (1.0-4.8); MEAN CORPUSCULAR HEMOGLOBIN 30.9 pg (26.0-34.0); MEAN CORPUSCULAR HGB CONC 33.8 G/dL (31.0-37.0); MEAN CORPUSCULAR VOLUME 92 fL (80-100); MONOCYTES # (AUTO) 0.5 K/uL (0.1-1.0); NEUTROPHILS # (AUTO) 2.3 K/uL (1.8-7.7); NEUTROPHILS % (AUTO) 56.1 % (40.0-70.0); PLATELET COUNT (AUTO) 199 K/uL (150-450); RED BLOOD CELL COUNT(AUTO) 3.67 MIL/uL (4.50-5.90); RED CELL DISTRIBUTION WIDTH 15.1 % (11.5-14.5)
[2019-03-14 22:34] LABS: PROTHROMBIN TIME 10.3 SEC (9.4-11.6)
[2019-03-14 22:35] LABS: CALCIUM, TOTAL 8.2 mg/dL (8.8-10.5); CREATININE 1.63 mg/dL (0.60-1.30); POTASSIUM 4.1 mmol/L (3.5-5.1)
[2019-03-14] MEDS ORDERED: ONDANSETRON HCL 4 MG/2 ML VIAL ONE (22:36)
[2019-03-14] MEDS ORDERED: MORPHINE SULFATE 4 MG/ML SYRINGE IVP ONE (22:45)
[2019-03-14 23:00] LABS: ALBUMIN 3.5 g/dL (3.4-5.0); BILIRUBIN,TOTAL 0.2 mg/dL (0.1-1.0); TOTAL PROTEIN, SERUM 6.8 g/dL (6.4-8.2)
[2019-03-15 00:30] VITALS: BP 102/67
[2019-03-15] MEDS ORDERED: MORPHINE SULFATE 4 MG/ML SYRINGE IVP ONE (00:45)
== END 2019-03-15 01:06 | disposition home or self-care (01) ==
LOC: EMS 21:00
DX: R07.89 Other chest pain (principal); R79.0 Abnormal level of blood mineral; E78.00 Pure hypercholesterolemia, unspecified; I25.10 Atherosclerotic heart disease of native coronary artery without angina pectoris; G47.00 Insomnia, unspecified; I11.9 Hypertensive heart disease without heart failure; Z79.899 Other long term (current) drug therapy; Z98.890 Other specified postprocedural states; Z95.1 Presence of aortocoronary bypass graft; Z88.5 Allergy status to narcotic agent; Z88.8 Allergy status to other drugs, medicaments and biological substances
CPT/HCPCS: 36415; 71045; 80053; 82550; 83880; 84484; 85025; 85610; 85730; 93005; 96374; 96376; 99285; J2270 ×2; J2405; J7040

== ENCOUNTER 2019-03-27 20:49 | Inpatient (IN) | payer MEDICARE, OTHER ==
[~2019-03-27] VITALS: Ht 193 cm; Wt 123.5 kg
[2019-03-27] MEDS ORDERED: OXYC10TA48 PO (21:11)
[2019-03-27] MEDS ORDERED: HYDR20TA20 PO (21:11)
[2019-03-27] MEDS ORDERED: ASPIRIN 81 MG CHEWABLE TABLET PO ONE (21:30)
[2019-03-27] MEDS ORDERED: NITROGLYCERIN 0.4 MG SUBLINGUAL TABLET #25 SL ONE (21:30)
[2019-03-27 22:08] LABS: BASOPHILS % (AUTO) 0.4 % (0.0-2.0); HEMOGLOBIN 11.2 g/dL (13.5-17.5); LYMPHOCYTES # (AUTO) 1.6 K/uL (1.0-4.8); LYMPHOCYTES % (AUTO) 40.4 % (22.0-44.0); MEAN CORPUSCULAR HEMOGLOBIN 30.2 pg (26.0-34.0); MEAN CORPUSCULAR HGB CONC 33.1 G/dL (31.0-37.0); MEAN CORPUSCULAR VOLUME 91 fL (80-100); MONOCYTES # (AUTO) 0.5 K/uL (0.1-1.0); MONOCYTES % (AUTO) 11.7 % (2.0-9.0); NEUTROPHILS # (AUTO) 1.9 K/uL (1.8-7.7); NEUTROPHILS % (AUTO) 46.5 % (40.0-70.0); PLATELET COUNT (AUTO) 275 K/uL (150-450); RED BLOOD CELL COUNT(AUTO) 3.72 MIL/uL (4.50-5.90)
[2019-03-27 22:18] LABS: APPEARANCE,URINE CLOUDY (CLEAR); GLUCOSE, URINE (UA) NEGATIVE (NEGATIVE); KETONES,URINE TRACE mg/dL (NEGATIVE); LEUKOCYTE ESTERASE ,URINE TRACE (NEGATIVE); NITRATE,URINE NEGATIVE (NEGATIVE); OCCULT BLOOD,URINE SMALL (NEGATIVE); PH,URINE 5.5 (5.0-8.0); PROTEIN,URINE POS 1+ (NEGATIVE)
[2019-03-27 22:19] LABS: BILIRUBIN,URINE PRELIM. POSITIVE (NEGATIVE)
[2019-03-27 22:19] LABS: ANION GAP 5 mmol/L (8-16); CALCIUM, TOTAL 9.2 mg/dL (8.8-10.5); CARBON DIOXIDE 31 mmol/L (22-29); CHLORIDE 104 mmol/L (98-107); CREATININE 1.37 mg/dL (0.60-1.30); GLOMERULAR FILTR. RATE CALC > 60 mL/min (>60); GLUCOSE,RANDOM 93 mg/dL (70-110); POTASSIUM 3.6 mmol/L (3.5-5.1); SODIUM SERUM 140 mmol/L (136-145); UREA NITROGEN, BLOOD 12 mg/dL (7-18)
[2019-03-27 22:26] LABS: ALANINE AMINOTRANSFERASE 35 U/L (12-78); ALBUMIN 3.4 g/dL (3.4-5.0); ALKALINE PHOSPHATASE 77 U/L (46-116); ASPARTATE AMINOTRANSFERASE 17 U/L (15-37); BILIRUBIN,TOTAL 0.2 mg/dL (0.1-1.0); TOTAL PROTEIN, SERUM 7.6 g/dL (6.4-8.2)
[2019-03-27 22:27] LABS: BACTERIA,URINE Moderate /HPF (None Seen); SQUAMOUS EPITHELIAL CELL,UR Moderate /LPF (None Seen)
[2019-03-27] MEDS ORDERED: PHENAZOPYRIDINE HCL 100 MG TABLET PO ONE (22:45)
[2019-03-27] MEDS ORDERED: CefTRIAXone 1 GM/DEXTROSE 50 ML IV ONE (22:45)
[2019-03-27] MEDS ORDERED: KETOROLAC TROMETHAMINE 30 MG/ML VIAL IVP ONE (23:00)
[2019-03-28] MEDS ORDERED: 0.9% SODIUM CHLORIDE 10 ML SYRINGE IVP PRN
[2019-03-28] MEDS ORDERED: NITROGLYCERIN 0.4 MG SUBLINGUAL TABLET #25 SL PRN
[2019-03-28] MEDS ORDERED: POTASSIUM CHL 10 MEQ/WATER 50 ML IV PRN
[2019-03-28] MEDS ORDERED: MAGNESIUM SULFATE 4 GM/WATER 100 ML IV PRN
[2019-03-28] MEDS ORDERED: ONDANSETRON HCL 4 MG/2 ML VIAL IVP PRN
[2019-03-28] MEDS ORDERED: POTASSIUM CHLORIDE 20 MEQ ER TABLET PO PRN
[2019-03-28] MEDS ORDERED: MAGNESIUM SULFATE 2 GM/WATER 50 ML IV PRN
[2019-03-28] MEDS: DOCUSATE SODIUM 100 MG CAPSULE PO SCH ×3 (00:17→21:01)
[2019-03-28] MEDS: TICAGRELOR 90 MG TABLET PO SCH ×3 (00:17→21:01)
[2019-03-28] MEDS: ZOLPIDEM TARTRATE 5 MG TABLET PO PRN (03:52)
[2019-03-28] MEDS: OxyCODONE HCL 10 MG IR TABLET PO PRN ×2 (03:52→12:55)
[2019-03-28 08:55] VITALS: BP 122/65
[2019-03-28] MEDS: AmLODIPine BESYLATE 5 MG TABLET PO SCH ×3 (09:00→21:00)
[2019-03-28] MEDS: METOPROLOL TARTRATE 50 MG TABLET PO SCH (09:00)
[2019-03-28] MEDS ORDERED: [UNRECOGNIZED DRUG - OTHER] PO SCH (09:00)
[2019-03-28] MEDS: TAMSULOSIN HCL 0.4 MG CAPSULE PO SCH (09:17)
[2019-03-28] MEDS: ENOXAPARIN SODIUM 40 MG/0.4 ML PF SYRINGE SQ SCH (09:17)
[2019-03-28] MEDS: ASPIRIN 81 MG EC TABLET PO SCH (09:18)
[2019-03-28] MEDS: DULoxetine HCL 20 MG CAPSULE PO SCH (09:18)
[2019-03-28] MEDS: RANOLAZINE 500 MG ER TABLET PO SCH ×2 (09:18→21:02)
[2019-03-28] MEDS: FINASTERIDE 5 MG TABLET PO SCH (09:18)
[2019-03-28] MEDS: OMEPRAZOLE 20 MG CAPSULE PO SCH (09:18)
[2019-03-28] MEDS: ROSUVASTATIN CALCIUM 20 MG TABLET PO SCH (09:19)
[2019-03-28] MEDS: LOSARTAN POTASSIUM 25 MG TABLET PO SCH (09:19)
[2019-03-28] MEDS: MAGNESIUM OXIDE 400 MG TABLET PO PRN ×2 (10:09→17:44)
[2019-03-28 13:35] VITALS: BP 122/67
[2019-03-28] MEDS: ISOSORBIDE MONONITRATE 60 MG ER TABLET PO SCH (14:25)
[2019-03-28] MEDS: ACETAMINOPHEN 325 MG TABLET PO PRN ×2 (14:25→18:49)
[2019-03-28 16:54] VITALS: BP 102/66
[2019-03-28] MEDS: MORPHINE SULFATE 2 MG/ML SYRINGE IVP PRN (17:44)
[2019-03-28 19:29] VITALS: BP 103/59
[2019-03-28] MEDS ORDERED: SODIUM CHLORIDE 0.9% 250 ML IV ONE (22:08)
[2019-03-28] MEDS ORDERED: CefTRIAXone 1 GM/DEXTROSE 50 ML IV SCH (23:00)
[2019-03-29 00:25] VITALS: BP 109/63
[2019-03-29] MEDS: MAGNESIUM OXIDE 400 MG TABLET PO PRN (00:29)
[2019-03-29] MEDS: ZOLPIDEM TARTRATE 5 MG TABLET PO PRN (00:29)
[2019-03-29] MEDS: MORPHINE SULFATE 2 MG/ML SYRINGE IVP PRN (00:30)
[2019-03-29 05:30] VITALS: BP 105/58
[2019-03-29 07:47] VITALS: BP 133/76
[2019-03-29 07:58] LABS: BASOPHILS % (AUTO) 0.3 % (0.0-2.0); HEMATOCRIT 30.4 % (41-53); HEMOGLOBIN 10.5 g/dL (13.5-17.5); LYMPHOCYTES # (AUTO) 1.4 K/uL (1.0-4.8); LYMPHOCYTES % (AUTO) 38.3 % (22.0-44.0); MEAN CORPUSCULAR HEMOGLOBIN 30.9 pg (26.0-34.0); MEAN CORPUSCULAR HGB CONC 34.6 G/dL (31.0-37.0); MEAN CORPUSCULAR VOLUME 89 fL (80-100); MONOCYTES # (AUTO) 0.4 K/uL (0.1-1.0); MONOCYTES % (AUTO) 9.4 % (2.0-9.0); NEUTROPHILS # (AUTO) 1.9 K/uL (1.8-7.7); PLATELET COUNT (AUTO) 285 K/uL (150-450); RED CELL DISTRIBUTION WIDTH 14.8 % (11.5-14.5)
[2019-03-29 08:31] LABS: ALANINE AMINOTRANSFERASE 26 U/L (12-78); ALKALINE PHOSPHATASE 70 U/L (46-116); ANION GAP 6 mmol/L (8-16); ASPARTATE AMINOTRANSFERASE 16 U/L (15-37); BILIRUBIN,TOTAL 0.2 mg/dL (0.1-1.0); CARBON DIOXIDE 29 mmol/L (22-29); CHLORIDE 103 mmol/L (98-107); CREATININE 1.18 mg/dL (0.60-1.30); GLOMERULAR FILTR. RATE CALC > 60 mL/min (>60); GLUCOSE,RANDOM 92 mg/dL (70-110); POTASSIUM 3.7 mmol/L (3.5-5.1); SODIUM SERUM 138 mmol/L (136-145); TOTAL PROTEIN, SERUM 6.7 g/dL (6.4-8.2); UREA NITROGEN, BLOOD 14 mg/dL (7-18)
[2019-03-29] MEDS: ROSUVASTATIN CALCIUM 20 MG TABLET PO SCH (09:12)
[2019-03-29] MEDS: RANOLAZINE 500 MG ER TABLET PO SCH (09:12)
[2019-03-29] MEDS: DOCUSATE SODIUM 100 MG CAPSULE PO SCH (09:12)
[2019-03-29] MEDS: OMEPRAZOLE 20 MG CAPSULE PO SCH (09:13)
[2019-03-29] MEDS: TICAGRELOR 90 MG TABLET PO SCH (09:13)
[2019-03-29] MEDS: AmLODIPine BESYLATE 5 MG TABLET PO SCH (09:13)
[2019-03-29] MEDS: FINASTERIDE 5 MG TABLET PO SCH (09:13)
[2019-03-29] MEDS: ASPIRIN 81 MG EC TABLET PO SCH (09:13)
[2019-03-29] MEDS: LOSARTAN POTASSIUM 25 MG TABLET PO SCH (09:13)
[2019-03-29] MEDS: TAMSULOSIN HCL 0.4 MG CAPSULE PO SCH (09:13)
[2019-03-29] MEDS: DULoxetine HCL 20 MG CAPSULE PO SCH (09:13)
[2019-03-29] MEDS: ENOXAPARIN SODIUM 40 MG/0.4 ML PF SYRINGE SQ SCH (09:14)
[2019-03-29] MEDS: METOPROLOL TARTRATE 50 MG TABLET PO SCH (09:17)
[2019-03-29] MEDS: ISOSORBIDE MONONITRATE 60 MG ER TABLET PO SCH (09:51)
[2019-03-29 11:23] VITALS: BP 119/63
[2019-03-29] MEDS ORDERED: BACTDSB PO (12:39)
== END 2019-03-29 14:15 | disposition home or self-care (01) | DRG 303 ==
LOC: EMS 20:54 → 5S 03-28 05:19
PROVIDERS: ADMIT Internal Medicine; ATTEND Internal Medicine
PROC: 5A09357 Assistance with Respiratory Ventilation, Less than 24 Consecutive Hours, Continuous Positive Airway Pressure (ICD-10-PCS; principal; 2019-03-28)
PROC: 5A09357 Assistance with Respiratory Ventilation, Less than 24 Consecutive Hours, Continuous Positive Airway Pressure (ICD-10-PCS; 2019-03-29)
DX: I25.10 Atherosclerotic heart disease of native coronary artery without angina pectoris (principal); N39.0 Urinary tract infection, site not specified; I73.9 Peripheral vascular disease, unspecified; G47.33 Obstructive sleep apnea (adult) (pediatric); E66.9 Obesity, unspecified; E78.00 Pure hypercholesterolemia, unspecified; E78.5 Hyperlipidemia, unspecified; G89.4 Chronic pain syndrome; I10 Essential (primary) hypertension; J44.9 Chronic obstructive pulmonary disease, unspecified; N40.0 Benign prostatic hyperplasia without lower urinary tract symptoms; Z95.5 Presence of coronary angioplasty implant and graft; Z68.33 Body mass index [BMI] 33.0-33.9, adult; Z88.5 Allergy status to narcotic agent; Z88.8 Allergy status to other drugs, medicaments and biological substances; Z79.899 Other long term (current) drug therapy; Z82.49 Family history of ischemic heart disease and other diseases of the circulatory system
CPT/HCPCS: 74176; 83735; 87086; 93005; 94660; J0696; J1650; J1885; J2270; J2405; J7050